=== PATIENT | male | born 1935 | race Caucasian/White ===

== ENCOUNTER → 2016-04-09 | Day surgery (SDC) | payer OTHER ==
[~2016-04-09] MED LIST: ASPI81TA82 PO; ATOR40TA PO; BUPIVACAINE/EPINEPHRINE 0.25% 50 ML VIAL ONE; LACTATED RINGER'S 1000 ML INJ 1,000 ML ONE; LISI-360 PO; MIDAZOLAM HCL 2 MG/2 ML VIAL ONE; ONDANSETRON HCL 4 MG/2 ML VIAL IV PUSH ONE; PROPOFOL 200 MG/20 ML AMP IV ONE; PROT40TA PO; Z.0.UNKNOWN; ceFAZolin 2 GM PREMIX 50 ML ONE; htn med
--- NOTE | 2016-04-09 12:00 | TN ---
cc: INESSA PATEL M.D. DATE OF SURGERY: 04/09/2016 PREOPERATIVE DIAGNOSIS Symptomatic left inguinal hernia. POSTOPERATIVE DIAGNOSIS 1. Symptomatic left inguinal hernia. 2. Indirect left inguinal hernia. PROCEDURE PERFORMED Open left inguinal hernia repair with mesh. SURGEON Inessa Patel MD DIRECTOR OF AGRICULTURE RADHA Bonds ANESTHESIA General LMA COMPLICATIONS None INDICATION FOR PROCEDURE Mr. Gunn is a pleasant 80-year-old gentleman who had a symptomatic bulge in his left groin. He was seen and evaluated in the office and was found to have a left inguinal hernia. He was offered elective repair. Open laparoscopic techniques were discussed and he elected open technique. Risks and benefits were discussed with him in detail and he was agreeable. DETAILS OF PROCEDURE The patient was identified, brought to the operating room and placed supine on the operating table. After adequate general anesthesia was achieved with LMA the anterior abdomen and groin was prepped and draped in standard surgical fashion. 0.25% Marcaine was injected into the skin and subcutaneous tissue of the left groin. A transverse incision was made. Dissection was carried down through subcutaneous tissue through Sandra's fascia down to the level of the external oblique. External oblique was then opened along the course of its fibers. Cord structures were immediately identified and encircled with a [place] drain. Cord structures were carefully dissected identifying the indirect inguinal hernia sac. The hernia sac was carefully dissected off the cord structures and followed back to the internal ring. Hernia sac was opened and found to contain some omentum which was reduced back in the abdominal cavity. Hernia sac was then twisted and ligated at its base with a 2-0 Vicryl suture. Distal sac was transected and proximal sac retracted back. Attention was now directed to mesh repair. Piece of polypropylene mesh was brought up onto the surgical field. Mesh was sewn inferior along the shelving edge of the inguinal ligament using a 2-0 Prolene continuous. It was then sewn medially at Portillo's ligament and superior along the conjoined tendon transversalis fascia. A slit was cut for the cord structures and they were allowed to pass freely through the mesh. The slit was reapproximated, tightening the internal ring appropriately without strangling the cord structures. With this indirect and direct spaces were well covered by mesh. The patient did have a slight direct bulge medially and this was well covered by the mesh. The wound was copiously irrigated with normal saline solution. 0.25% Marcaine was then injected. Cord structures were returned to their anatomic position and the external oblique was closed along the course of its fibers using 2-0 Vicryl. Sandra's fascia was closed with 3-0 Vicryl and skin was closed with 4-0 Vicryl. The patient tolerated the procedure well, was awakened and brought to recovery in stable condition. The ROADABILITY MACHINE OPERATOR observation assistant was medically necessary due to her specialized surgical skills and knowledge of my surgical technique. MD VICTORIANO Bronson/YASMIN /11:28 AM /11:47 AM PRINCESS
== END | disposition home or self-care (01) ==
LOC: ESDC 09:12
PROVIDERS: ATTEND Surgery Trauma Surgery
DX: K40.90 Unilateral inguinal hernia, without obstruction or gangrene, not specified as recurrent (principal)
CPT/HCPCS: 00830; 49505; C1781; J0690; J2250; J2405; J3010; J7120